=== PATIENT | male | born 2000 | race Two or more races ===

== ENCOUNTER 2021-01-27 21:18 | Emergency (ER) | payer MEDICAID ==
[~2021-01-27] VITALS: Ht 170.2 cm; Wt 100.0 kg
[2021-01-28 01:54] VITALS: BP 125/75
== END 2021-01-28 02:12 | disposition home or self-care (01) ==
LOC: ER 21:18
DX: U07.1 COVID-19 (principal)
CPT/HCPCS: 87426; 99283

== ENCOUNTER 2021-01-28 13:54 | Emergency (ER) | payer MEDICAID ==
[~2021-01-28] VITALS: Ht 170.2 cm; Wt 91.0 kg
[2021-01-28 14:01] VITALS: BP 110/84
== END 2021-01-28 14:52 | disposition home or self-care (01) ==
LOC: ER 14:25
DX: U07.1 COVID-19 (principal); R07.89 Other chest pain
CPT/HCPCS: 93005; 99283